=== PATIENT | male | born 1965 | race African-American/Black ===

== ENCOUNTER 2018-04-21 07:26 | Day surgery (SDC) | payer OTHER ==
[~2018-04-21 07:26] MED LIST: LIDOCAINE 2% (SDV) 5 ML INJ; ROCURONIUM 50 MG INJ; SOD CHLORIDE 0.9% 1,000 ML IV
[2018-04-21] MEDS ORDERED: PROPOFOL 100 ML (10:39)
[2018-04-21] MEDS ORDERED: FENTAnyl 50 MCG/ML VIAL (10:43)
[2018-04-21] MEDS ORDERED: ROCURONIUM 50 MG INJ (10:43)
[2018-04-21] MEDS: BUPIVACAINE 0.25% (MPF) 30 ML INJ (11:08)
[2018-04-21] MEDS ORDERED: SUGAMMADEX SODIUM 200 MG/2 ML VIAL IV (11:11)
[2018-04-21] MEDS ORDERED: CEFAZOLIN 1 GM INJ (11:11)
[2018-04-21] MEDS ORDERED: MEPERIDINE 25 MG INJ IV (11:30)
[2018-04-21] MEDS ORDERED: FENTAnyl 50 MCG/ML VIAL IV ×2 (11:30)
[2018-04-21] MEDS ORDERED: METOCLOPRAMIDE 10 MG INJ IV (11:30)
[2018-04-21] MEDS ORDERED: KETOROLAC 30 MG INJ IV (11:30)
[2018-04-21] MEDS ORDERED: HYDROCODONE/APAP (5/325) TAB PO (11:30)
[2018-04-21] MEDS ORDERED: ONDANSETRON 4 MG INJ IV (11:30)
[2018-04-21] MEDS ORDERED: HYDROmorphONE 1 MG/5 ML IV SYRINGE IV ×2 (11:30)
[2018-04-21] MEDS ORDERED: OXYCODONE/ACETAMINOPHEN (5/325) TAB PO ×2 (11:30)
[2018-04-21] MEDS ORDERED: hydrALAzine 20 MG INJ IV (11:30)
[2018-04-21] MEDS ORDERED: EPHEDrine SULFATE 50 MG/5 ML SYG IV (11:30)
[2018-04-21] MEDS ORDERED: DIPHENHYDRAMINE 50 MG INJ IV (11:30)
[2018-04-21] MEDS ORDERED: ALBUTEROL 0.083% (NEB) 2.5 MG/3 ML AMP HHN (11:30)
[2018-04-21] MEDS ORDERED: LABETALOL HCL 20MG INJ IV (11:30)
[2018-04-21] MEDS: FENTAnyl 50 MCG/ML VIAL IV (12:11)
== END 2018-04-21 12:58 | disposition home or self-care (01) ==
LOC: SDS 07:26
DX: D49.89 Neoplasm of unspecified behavior of other specified sites (principal); Z72.0 Tobacco use; Z88.0 Allergy status to penicillin; Z93.3 Colostomy status; Z82.49 Family history of ischemic heart disease and other diseases of the circulatory system
CPT/HCPCS: 14040; 88307